=== PATIENT | female | born 1995 ===

== ENCOUNTER 2018-08-03 17:00 | Emergency (ER) | payer SELFPAY ==
--- NOTE | 2018-08-04 11:27 | OBHP ---
Datetime: 08/03/2018 22:54 IP Adm Impression: , intrauterine IP Chief Complaint Other: Elevated BP reading IP Admit Plan: Discharge home Admit Comment, IP Provider: Patient seen at aproximately 1740 hours Patient is predominantly [place]an-speaking; translation performed by Braxton Javier R.N. 23 y.o. , LMP 01/04/18, SANDOVAL 10/11/18, EGA 30w 1d referred by [facility], Dr. Cherry, for BP monit oring. Had elevated BP reading in office earlier today, 142/83. Denies GORDILLO, BV, spots, RUQ or epigast stu pain. (+) AFM; denies LOF, VB, Ctx. care: Dr. 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 Denies H/O STIs PMH: denies PSH: denies NKDA Meds: PNV,iron - each, QD Soc Hx: denies tobacco, illicit drug or EtOH use. x 3 years. 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 Fam Hx: Mother alive 46 y.o. - HTN. Father - drowning accident. (+) fam H/O unk cancer P.E.: as above. WD in NAdD. Awake, alert, oriented to time, person and place. Wears glasses; last eye exam >= 2 years ago. Assessment: 23 y.o. P0, 30w 1d, normal BP readings in Ob-ED; no stigmata of pre-eclampsia. Categor y 1 tracing. Clinically stable. Plan: 1) Discharge home 2) reviewed S/S pre-eclampsia, PTL 3) Keep all scheduled appointments - will advise Dr. Cherry Pelvic Type - PN: Not Done Extremities - PN: Normal Abdomen - PN: Normal Back - PN: Normal Breast - PN: Not Done Lungs - PN: Normal Heart - PN: Normal Thyroid - PN: Not Done Neurologic - PN: Normal HEENT - PN: Normal General - PN: Normal FHR - Baseline A Provider: 140 Contraction Comments Provider: none Comments, ACOG Physical Exam: Abdomen: Gravid. Soft. Nontender in all quadrants (no epigastric or RU Q pain). Fundal height 29 cm. All other systems reviewed and are negative. Vital Signs Provider: Reviewed IP Chief Complaint: Other NICHD Variability Prov Fetus A: Moderate 6-25bpm NICHD Accel Fetus A IP Provider: [id number] FHR Category Provider Fetus A: Category I NICHD Decel Fetus A IP Provider: None Dilatation, Provider: deferred Genitourinary Exam: Not Done DTRs - PN: Normal
[2018-08-04 15:23] VITALS: BP 128/78; PULSE 99; RESP 18; TEMP 98.2
== END 2018-08-03 17:50 | disposition home or self-care (01) ==
LOC: C.EROB 17:00
DX: O26.893 Other specified pregnancy related conditions, third trimester (principal); R03.0 Elevated blood-pressure reading, without diagnosis of hypertension; Z3A.30 30 weeks gestation of pregnancy

== ENCOUNTER 2018-09-06 12:28 | Emergency (ER) | payer OTHER ==
[2018-09-06 13:19] VITALS: BMI 32.0
[2018-09-06 14:01] LABS: BASO % 0.4 % (0.0-2.0); EOS % 0.3 % (0.0-4.0); LYMPH # 1.7 K/uL (1.0-4.3); LYMPH % 20.9 % (20.0-40.0); MEAN CELL VOLUME 85.9 fL (81.0-99.0); MEAN CORPUSCULAR HEMOGLOBIN 29.7 pg (27.0-31.0); MEAN CORPUSCULAR HGB CONC 34.6 g/dL (33.0-37.0); MEAN PLATELET VOLUME 11.1 fL (7.2-11.7); MONO # 0.7 K/uL (0.0-0.8); MONO % 8.1 % (0.0-10.0); NEUT # 5.8 K/uL (1.8-7.0); NEUT % 70.3 % (50.0-75.0); RBC 4.37 Mil/uL (3.80-5.20); RED CELL DISTRIBUTION WIDTH 13.5 % (11.5-14.5); WHITE BLOOD COUNT 8.3 K/uL (4.8-10.8)
[2018-09-06 14:05] LABS: SQUAMOUS EPITHIAL 2 /hpf (0-5); URINE BACTERIA FEW (<OCC); URINE BILIRUBIN NEGATIVE (NEGATIVE); URINE BLOOD NEGATIVE (NEGATIVE); URINE CLARITY Hazy (Clear); URINE COLOR Yellow (YELLOW); URINE GLUCOSE (UA) 1+ mg/dL (Normal); URINE LEUKOCYTE ESTERASE NEG Leu/uL (Negative); URINE PROTEIN 1+ mg/dL (NEGATIVE); URINE UROBILINOGEN NORMAL mg/dL (0.2-1.0)
[2018-09-06 14:19] LABS: PROTHROMBIN TIME 10.4 SECONDS (9.7-12.2)
[2018-09-06 14:26] LABS: BLOOD UREA NITROGEN 8 mg/dL (7-17); CALCIUM 10.2 mg/dl (8.6-10.4); GFR NON-AFRICAN AMERICAN > 60; URIC ACID 4.8 mg/dL (2.2-7.5)
[2018-09-06 14:44] LABS: ALB/GLOB RATIO 1.1 (1.0-2.1); ALBUMIN 3.6 g/dL (3.5-5.0); ALT/SGPT < 6 U/L (9-52); AST/SGOT 45 U/L (14-36); CREATININE, RANDOM URINE 116.8 mg/dL
[2018-09-06] MEDS ORDERED: Lactated Ringer's 1,000 ML IV ONE (15:45)
[2018-09-06] MEDS ORDERED: Betamethasone Soluspan 30 mg/5mL Inj Susp IM ONE (16:00)
[2018-09-06 23:55] VITALS: BP 157/94; PULSE 105; RESP 20; TEMP 97.3; O2SAT 99
== END 2018-09-06 19:20 | disposition short-term general hospital (02) ==
LOC: C.EROB 12:28
DX: O26.893 Other specified pregnancy related conditions, third trimester (principal); Z3A.35 35 weeks gestation of pregnancy
CPT/HCPCS: 80053; 81001; 82570; 83615; 84156; 84550; 85025; 85384; 85610; 85730; 86592; 86703; 96372; 99284; J0702; J7120